=== PATIENT | female | born 1960 | race Caucasian/White ===

== ENCOUNTER 2019-06-09 09:06 | Day surgery (SDC) | payer MEDICAID ==
[~2019-06-09] VITALS: Ht 152.4 cm; Wt 110.2 kg
[2019-06-09 09:55] LABS: HEMATOCRIT 40.9 % (36.0-48.0); HEMOGLOBIN 13.7 g/dL (12.0-16.0); MEAN CORPUSCULAR HEMOGLOBIN 28.9 pg (28.0-32.0); MEAN CORPUSCULAR VOLUME 86.1 fL (81.0-99.0); PLATELET 341 x1000/uL (130-400); RED BLOOD CELL COUNT 4.75 mill/uL (4.2-5.4); RED CELL DISTRIBUTION WIDTH 14.2 % (11.6-14.6)
[2019-06-09 10:02] LABS: CHLORIDE 103 mEq/L (98-107)
[2019-06-09 10:03] LABS: PROTHROMBIN TIME 10.4 sec (9.6-11.0)
[2019-06-09] MEDS ORDERED: MIDAZOLAM HCL 2 MG/2 ML VIAL ONE (10:17)
[2019-06-09] MEDS ORDERED: LIDOCAINE HCL 1% 20ML VIAL (Pyxis) INJ ONE (10:18)
[2019-06-09] MEDS ORDERED: FENTANYL CITRATE/PF 50MCG/ML 2ML VIAL ONE (10:18)
[2019-06-09] MEDS ORDERED: IODIXANOL 320MG/ML 100 ML BOTTLE IV ONE (10:19)
[2019-06-09] MEDS ORDERED: METF-416 PO (10:37)
[2019-06-09] MEDS ORDERED: SIMV20TA6 MT (10:37)
[2019-06-09] MEDS ORDERED: LISI-186 PO (10:37)
[2019-06-09] MEDS ORDERED: GLIP2.5T3 PO (10:37)
[2019-06-09] MEDS ORDERED: CARV3.1242 PO (10:37)
[2019-06-09] MEDS ORDERED: OMEP20TA2 PO (10:37)
[2019-06-09] MEDS ORDERED: FURO20TA4 PO (10:37)
[2019-06-09] MEDS ORDERED: DIPHENHYDRAMINE 50MG/ML VIAL ONE (12:12)
[2019-06-09] MEDS ORDERED: HEPARIN SODIUM 1,000 UNIT/1ML VIAL IV ONE (15:00)
[2019-06-09] MEDS ORDERED: NITROGLYCERIN 50MCG/ML 10ML VIAL (CATH LAB) IV ONE (15:00)
[2019-06-09] MEDS ORDERED: NICARDIPINE 100MCG/ML 10ML VIAL (CATH LAB) IV ONE (15:00)
== END 2019-06-09 16:20 | disposition home or self-care (01) ==
LOC: CCL 09:06
PROVIDERS: ATTEND Internal Medicine Cardiovascular Disease
DX: I25.10 Atherosclerotic heart disease of native coronary artery without angina pectoris (principal); Z79.899 Other long term (current) drug therapy; Z79.84 Long term (current) use of oral hypoglycemic drugs
CPT/HCPCS: 36415; 80048; 85027; 85610; 93005; 93458; 99152; C1769; C1887; C1893; J1200; J1644; J2250; J3010; J3490; Q9967